=== PATIENT | female | born 1955 | race Caucasian/White ===

== ENCOUNTER → 2019-02-06 09:45 | Outpatient (CLI) | payer MEDICARE, OTHER, SELFPAY ==
--- NOTE | 2019-02-06 09:51 | DI.US.S_ITS ---
PROCEDURE: US PELVIC COMPLETE INDICATIONS: Endometrial cells seen on Pap smear TECHNIQUE: Real-time scanning was performed of the pelvic organs, with image documentation. Additional endovaginal scanning was necessary due to incomplete visualization of the adnexal and endometrial structures by transabdominal scanning. COMPARISON: None. FINDINGS: Transabdominal scanning: Limited scanning through the kidneys shows no hydronephrosis. The left kidney is not well-seen due to overlying bowel gas. No pathologic free abdominal or pelvic fluid. Endovaginal scanning: Uterus: Uterus is normal in size at 7.4 x 3.5 x 5.3 cm. The endometrium measures 2 mm in combined thickness. There is a probable 1.0 x 0.7 x 2.7 cm intramural fibroid in the right anterior uterine wall. Nabothian cysts are noted. Ovaries: Ovaries are not visualized. No adnexal mass. IMPRESSION: 1. Normal ultrasound appearance of endometrium. 2. Probable small uterine fibroid in the right anterior uterine wall. 3. Multiple nabothian cysts. 4. Ovaries are not visualized. No adnexal mass identified. Dictated by: Irais Gómez M.D. on 02/06/2019 at 10:55 Approved by: Irais Gómez M.D. on 02/06/2019 at 11:02
[2019-02-06 11:23] LABS: Alanine Aminotransferase 31 IU/L (9-52); Albumin Globulin Ratio 1.4 (1.0-2.8); Alkaline Phosphatase 79 U/L (38-126); Aspartate Aminotransferase 29 IU/L (14-36); BUN Creatinine Ratio 27.1 (6-22); Bilirubin Total 0.9 mg/dL (0.2-1.3); Blood Urea Nitrogen 19 mg/dL (7-17); Carbon Dioxide 28 mmol/L (22-32); Chloride 102 mmol/L (98-107); Cholesterol 167 mg/dL (140-199); Estimated Glomerular Filt Rate > 60.0 mL/min (>60); Globulin 2.9 g/dL (1.7-4.1); Glucose 85 mg/dL (80-110); HDL Cholesterol 48 mg/dL (40-60); HEMOLYSIS < 15 (0-50); LDL Cholesterol Calculated 111 mg/dL (<100); Potassium 3.9 mmol/L (3.4-5.1); Sodium 137 mmol/L (137-145); Total Protein 6.9 g/dL (6.3-8.2); Triglycerides 38 mg/dL (35-150)
[2019-02-06 11:50] LABS: Vitamin D 25 Hydroxy (D3) 43.2 ng/mL (30.0-100.0)
[2019-02-06 11:57] LABS: Thyroid Stimulating Hormone 0.08 uIU/mL (0.47-4.68)
== END ==
PROVIDERS: Visit Provider Physician Assistant
DX: N88.8 Other specified noninflammatory disorders of cervix uteri (principal); R87.619 Unspecified abnormal cytological findings in specimens from cervix uteri; E03.9 Hypothyroidism, unspecified; Z13.220 Encounter for screening for lipoid disorders; Z13.6 Encounter for screening for cardiovascular disorders; Z13.1 Encounter for screening for diabetes mellitus
CPT/HCPCS: 36415; 76830; 76856; 80053; 80061; 82306; 84443

== ENCOUNTER → 2019-04-15 12:27 | Outpatient (CLI) | payer MEDICARE, OTHER, SELFPAY ==
--- NOTE | 2019-04-15 12:28 | DI.MG.S_ITS ---
BILATERAL DIGITAL SCREENING MAMMOGRAM 3D/2D WITH CAD: 04/15/2019 CLINICAL: Routine screening. Comparison is made to exams dated: 03/08/2017 mammogram, 02/26/2016 mammogram, and 11/21/2014 mammogram - [facility]. The tissue of both breasts is heterogeneously dense. This may lower the sensitivity of mammography. Current study was also evaluated with a Computer Aided Detection (CAD) system. No significant masses, calcifications, or other findings are seen in either breast. There has been no significant interval change. IMPRESSION: NEGATIVE There is no mammographic evidence of malignancy. A 1 year screening mammogram is recommended. This exam was interpreted at Station ID: [id number]. NOTE: For mammograms, a report in lay terms will be sent to the patient. Approximately 15% of breast malignancies will not be visualized mammographically. In the management of a palpable breast mass, a negative mammogram must not discourage biopsy of a clinically suspicious lesion. Electronically Signed By: Steven tejada/sophie:04/15/2019 16:11:43 letter sent: Normal Exam ACR BI-RADS Category 1: Negative 3341F
== END ==
PROVIDERS: PCP Physician Assistant; Visit Provider Physician Assistant
DX: Z12.31 Encounter for screening mammogram for malignant neoplasm of breast (principal); M81.0 Age-related osteoporosis without current pathological fracture; Z78.0 Asymptomatic menopausal state; E07.9 Disorder of thyroid, unspecified
CPT/HCPCS: 77063; 77067; 77080

== ENCOUNTER 2019-05-17 10:41 | Day surgery (SDC) | payer MEDICARE, OTHER, SELFPAY ==
[2019-05-17] VITALS (7 sets, daily range): BP systolic 95–121; BP diastolic 47–71; PULSE 60–99; RESP 12–20; TEMP 36.1–36.7; O2SAT 98–100; BMI 18.9
--- NOTE | 2019-05-17 | PATH_ITS ---
[facility] Accession Number: [id number] . 01 Material submitted: . colon - CECAL POLYP . 02 Diagnosis: Cecum, Polyp: Tubular adenoma. MRV 05/20/2019 1031 Local . 02 Electronically signed: . Brayan Mcdonough MD, PhD, Pathologist NPI- [id number] . 01 Gross description: . CECAL POLYP: Received in formalin are 2 fragment(s) of troy, soft tissue measuring 0.1 x 0.1 x 0.1 cm to 0.2 x 0.2 x 0.2 cm which is entirely submitted and submitted entirely in 1 cassette(s) [place]/17/2019 2311 Local . 02 Pathologist provided ICD-10: D12.0 . 02 CPT . 292859 Performed at: 01 [facility] [address] [id number] MD Solomon Barr MD Phone: [phone] Performed at: 02 [facility] [address] [place], [place] [id number] MD Carmina Savage MD Phone: [phone]
[2019-05-17] MEDS: SODIUM CHLORIDE 0.9% 1,000 ML 200 ML IV ×2 (11:12→13:07)
--- NOTE | 2019-05-17 11:23 | PM.HP.1 ---
History of Present Illness History of Present Illness Date Patient Seen: 05/17/19 Time Patient Seen: 11:23 Chief complaint: [id number] SCREENING COLONOSCOPY Narrative: 64-year-old woman presents for screening colonoscopy Last screening colonoscopy 11 years ago No family or personal history of colorectal cancers or polyps Tolerated the prep well Patient History Family & Social History Social History: household members spouse Tobacco & Substance use: Smoking Status Never smoker alcohol intake current Meds Home Medications and Allergies Home Medications Medication Instructions Recorded Confirmed Type valacyclovir [Valtrex] 1,000 mg PO BID #20 tab 09/01/16 05/17/19 Rx cholecalciferol (vitamin D3) 1,000 1,000 unit PO DAILY 01/11/18 05/17/19 History unit capsule folic acid 400 mcg tablet 400 mcg PO DAILY 01/11/18 05/17/19 History levothyroxine 50 mcg tablet 50 mcg PO QAM #90 tab 12/27/18 05/17/19 Rx Allergies Allergy/AdvReac Type Severity Reaction Status Date / Time No Known Drug Allergies Allergy Verified 01/23/19 09:03 Review of Systems Constitutional Constitutional: Denies fever(s) Eyes Eyes: Denies bulging eyes ENT Ears, Nose, Mouth, and Throat: No lip swelling Cardiovascular Cardiovascular: Denies generalize swelling Respiratory Respiratory: Denies stridor Gastrointestinal Gastrointestinal: Denies coffee ground emesis Musculoskeletal Musculoskeletal: Denies loss of height Integumentary/Breasts Skin/Breast: Denies wounds Neurologic Neurologic: Denies abnormal speech and Denies confusion Psychiatric Psychiatric: Denies confusion and Denies tactile hallucinations Endocrine Endocrine: Denies deepening of the voice Hematologic/Lymphatic Hematologic/Lymphatic: Denies lymphadenopathy Allergic/Immunologic Allergic/Immunologic: Denies lip swelling Exam Vital Signs (past 8 hours): - 05/17/19 11:04 Temperature 97.3 F L Pulse Rate 89 Respiratory Rate 16 Blood Pressure 121/71 Pulse Oximetry 99 Oxygen Delivery Method Room Air Const General: cooperative and healthy appearing Orientation: alert HENWV Head: normal to inspection Nose: nares normal Mouth: oral mucosae normal and lip normal Eyes Eyelids: eyelids normal Conjunctivae: conjunctivae normal Sclera: sclerae normal Neck Neck: supple and other (No thyromegally) Chest Chest: other (LCTAB , regular respiratory effort) Cardio Rhythm: regular rhythm Heart Sounds: S1 normal, S2 normal, no gallops, no murmurs and no rubs GI Other: Abdomen soft nontender nondistended Skin General: no rashes or lesions noted Neuro General: alert and awake Psych Appearance: grossly normal Affect: normal affect Assessment & Plan Assessment & Plan narrative: 64-year-old woman here for screening colonoscopy Risks and benefits of procedure discussed Risks including bleeding, perforation, , hypoxia, missed lesion all discussed All questions answered Patient ready to proceed
--- NOTE | 2019-05-17 11:24 | PM.OP.ENDO ---
Operative Date/Time/Diagnoses Date of procedure: 05/17/19 Time of procedure: 13:15 Pre-op diagnosis: Colorectal cancer screening Procedure & Clinicians Study performed: Diagnostic colonoscopy-complete Polypectomy of cecal polyp x1 -cold biopsy forcep Same procedure as scheduled: Yes Indications: 64-year-old woman without family history of colon or rectal cancers, no personal history of colon polyps. Last colonoscopy 11 years ago Surgeon: Ramirez Covington Procedure Notes SCOAP/Timeout: complete Procedure in detail: Patient was taken to the endoscopy suite a time-out was completed. She was sedated over the entire course of what ended up being a very lengthy procedure with 14 mg of midazolam and 350 micro g of fentanyl. A digital rectal exam was performed without concerning lesions. 160 cm pediatric colonoscope was advanced to the folds of the rectum and colon towards the cecum, the patient had a markedly long, redundant, tightly curved, floppy colon which proved to be a very difficult colon to scope ultimately with the pediatric scope I was able to reach in the vicinity of the mid transverse colon however due to extensive looping I was not able to advance further. This was despite trialed positions in the right left decubitus position supine and prone. Ultimately the pediatric colonoscope was fully withdrawn and switched out for an adult 160 cm colonoscope. This was also advanced through the folds of the rectum, and colon again there was great difficulty negotiating through a very redundant transverse colon. The hepatic flexure was extremely tight approximately 160 degree turn. A total of 2 individuals were required to place abdominal pressure and thus prevent some of the major loops from forming. Ultimately we were able to negotiate around the hepatic flexure in into the ascending colon. With suctioning around full inch by inch with multiple advancement some withdrawals we were able to reach the cecum. The cecum was definitively identified via a ileocecal valve as well as a prominent appendiceal orifice. Inspecting the mucosal surfaces a single questionable polyp was identified within the cecum this was biopsied with the biopsy forcep. The scope was then slowly withdrawn carefully inspecting the mucosal surfaces. The scope was then retroflexed in the rectum. No additional lesions were identified The patient tolerated the procedure well Prep was adequate Scope withdrawal time: 10 Sedation minutes: 91 Specimen(s): other (Cecal polyp) Complications: none Impression: Cecal polyp x1 Extremely redundant, tortuous, long colon Post-procedure Recommendations: Other recommendation (If true adenomatous polyp follow-up in 5 years, if hyperplastic polyp -10 years) Plan for aftercare: PACU then home Follow up: as needed Disposition: PACU
[2019-05-17] MEDS: fentaNYL 250 MCG/5 ML INJ IV (13:16)
[2019-05-17] MEDS: MIDAZOLAM 5 MG/5 ML VIAL IV (13:17)
== END 2019-05-17 14:35 | disposition home or self-care (01) ==
LOC: ENDO 10:44
PROVIDERS: PCP Physician Assistant; Visit Provider Surgery
PROC: 0DJD8ZZ Inspection of Lower Intestinal Tract, Via Natural or Artificial Opening Endoscopic (ICD-10-PCS; CPT 45378; principal; 2019-05-17 11:45)
DX: Z12.11 Encounter for screening for malignant neoplasm of colon (principal); D12.0 Benign neoplasm of cecum
CPT/HCPCS: 45380; 99152; 99153; J2250; J3010

== ENCOUNTER → 2019-10-03 11:38 | Outpatient (CLI) | payer MEDICARE, OTHER, SELFPAY ==
[2019-10-03 13:18] LABS: Thyroid Stimulating Hormone 0.36 uIU/mL (0.47-4.68)
== END ==
PROVIDERS: PCP Physician Assistant; Referring Provider Physician Assistant; Visit Provider Physician Assistant
DX: E03.9 Hypothyroidism, unspecified (principal)
CPT/HCPCS: 36415; 84443

== ENCOUNTER → 2020-01-10 12:32 | Outpatient (CLI) | payer MEDICARE, OTHER, SELFPAY ==
[2020-01-10 15:14] LABS: Vitamin D 25 Hydroxy (D3) 51.7 ng/mL (30.0-100.0)
== END ==
PROVIDERS: PCP Nurse Practitioner Family; Referring Provider Physician Assistant; Visit Provider Physician Assistant
DX: M81.0 Age-related osteoporosis without current pathological fracture (principal); E03.9 Hypothyroidism, unspecified; R79.89 Other specified abnormal findings of blood chemistry
CPT/HCPCS: 36415; 82306; 84443

== ENCOUNTER → 2020-04-18 09:52 | Outpatient (CLI) | payer MEDICARE, OTHER, SELFPAY ==
--- NOTE | 2020-04-18 09:56 | DI.MG.S_ITS ---
BILATERAL DIGITAL SCREENING MAMMOGRAM 3D/2D WITH CAD: 04/18/2020 CLINICAL: Routine screening. Comparison is made to exams dated: 04/15/2019 mammogram, 03/08/2017 mammogram, and 02/26/2016 mammogram - [facility]. The tissue of both breasts is heterogeneously dense. This may lower the sensitivity of mammography. Current study was also evaluated with a Computer Aided Detection (CAD) system. There are benign calcifications in both breasts. There also are benign post operative findings in the left breast. No significant masses, calcifications, or other findings are seen in either breast. There has been no significant interval change. IMPRESSION: BENIGN There is no mammographic evidence of malignancy. A 1 year screening mammogram is recommended. This exam was interpreted at Station ID: [id number]. NOTE: For mammograms, a report in lay terms will be sent to the patient. Approximately 15% of breast malignancies will not be visualized mammographically. In the management of a palpable breast mass, a negative mammogram must not discourage biopsy of a clinically suspicious lesion. Electronically Signed By: Steven tejada/sophie:04/20/2020 07:33:00 letter sent: Normal Exam ACR BI-RADS Category 2: Benign Finding(s) 3342F
== END ==
PROVIDERS: PCP Nurse Practitioner Family; Referring Provider Nurse Practitioner Family; Visit Provider Nurse Practitioner Family
DX: Z12.31 Encounter for screening mammogram for malignant neoplasm of breast (principal)
CPT/HCPCS: 77063; 77067

== ENCOUNTER → 2020-04-22 14:35 | Outpatient (CLI) | payer MEDICARE, OTHER, SELFPAY ==
[2020-04-22 15:17] LABS: Hematocrit 38.1 % (36-46); Hemoglobin 12.5 g/dL (12.0-16.0); Mean Corpuscular HGB Conc 32.9 % (30-36); Mean Corpuscular Hemoglobin 30.7 PG (26-34); Mean Corpuscular Volume 93.2 fL (80-100); Platelet Count 227 X10^3/uL (150-400); Red Blood Cell Count 4.09 X10^6/uL (4.0-5.2); Red Cell Distribution Width 13.5 % (11.6-14.8); White Blood Cell Count 3.6 X10^3/uL (4.5-11.0)
[2020-04-22 15:54] LABS: Alanine Aminotransferase 28 IU/L (<35); Albumin 4.2 g/dL (3.5-5.0); Albumin Globulin Ratio 1.6 (1.0-2.8); Alkaline Phosphatase 90 U/L (38-126); Aspartate Aminotransferase 27 IU/L (14-36); BUN Creatinine Ratio 22.2 (6-22); Blood Urea Nitrogen 16 mg/dL (7-17); Calcium 10.1 mg/dL (8.4-10.2); Carbon Dioxide 26 mmol/L (22-32); Chloride 105 mmol/L (98-107); Estimated Glomerular Filt Rate > 60.0 mL/min (>60); Globulin 2.7 g/dL (1.7-4.1); Glucose 87 mg/dL (80-110); HEMOLYSIS < 15 (0-50); Potassium 4.4 mmol/L (3.4-5.1); Sodium 138 mmol/L (137-145); Total Protein 6.9 g/dL (6.3-8.2)
[2020-04-22 16:09] LABS: Free T4, Direct Thyroxine 1.41 ng/dL (0.78-2.19); Vitamin D 25 Hydroxy (D3) 63.1 ng/mL (30.0-100.0)
[2020-04-22 16:23] LABS: Thyroid Stimulating Hormone 0.345 uIU/mL (0.47-4.68)
== END ==
PROVIDERS: PCP Nurse Practitioner Family; Referring Provider Nurse Practitioner Family; Visit Provider Nurse Practitioner Family
DX: E03.9 Hypothyroidism, unspecified (principal); M81.0 Age-related osteoporosis without current pathological fracture
CPT/HCPCS: 36415; 80053; 82306; 84439; 84443; 85027

== ENCOUNTER → 2020-06-02 14:02 | Outpatient (CLI) | payer MEDICARE, OTHER, SELFPAY ==
[2020-06-02 14:42] LABS: Add Manual Diff / Slide Review NO; Basophils Absolute Auto 0 /uL (0-100); Basophils Percent Auto 0.2 % (0-2); Eosinophils Absolute Auto 100 /uL (0-450); Eosinophils Percent Auto 1.2 % (2-4); Hematocrit 37.2 % (36-46); Hemoglobin 12.4 g/dL (12.0-16.0); Lymphocytes Absolute Auto 1500 /uL (1100-4500); Lymphocytes Percent Auto 34.6 % (25-40); Mean Corpuscular HGB Conc 33.4 % (30-36); Mean Corpuscular Volume 92.9 fL (80-100); Monocytes Absolute Auto 300 /uL (0-900); Monocytes Percent Auto 7.1 % (3-14); Neutrophils Absolute Auto 2400 /uL (1500-7000); Neutrophils Percent Auto 56.9 % (50-75); Platelet Count 233 X10^3/uL (150-400); Red Blood Cell Count 4.01 X10^6/uL (4.0-5.2); Red Cell Distribution Width 14.1 % (11.6-14.8); White Blood Cell Count 4.3 X10^3/uL (4.5-11.0)
[2020-06-02 15:40] LABS: Thyroid Stimulating Hormone 0.555 uIU/mL (0.47-4.68)
== END ==
PROVIDERS: PCP Nurse Practitioner Family; Referring Provider Nurse Practitioner Family; Visit Provider Nurse Practitioner Family
DX: D72.819 Decreased white blood cell count, unspecified (principal); E03.9 Hypothyroidism, unspecified
CPT/HCPCS: 36415; 84443; 85025

== ENCOUNTER → 2020-09-28 11:17 | Outpatient (CLI) | payer MEDICARE, OTHER, SELFPAY ==
[2020-09-28 11:51] LABS: Alanine Aminotransferase 27 IU/L (<35); Albumin Globulin Ratio 1.4 (1.0-2.8); Alkaline Phosphatase 89 U/L (38-126); Aspartate Aminotransferase 25 IU/L (14-36); Bilirubin Total 0.6 mg/dL (0.2-1.3); Blood Urea Nitrogen 18 mg/dL (7-17); Carbon Dioxide 31 mmol/L (22-32); Chloride 103 mmol/L (98-107); Cholesterol 186 mg/dL (140-199); Estimated Glomerular Filt Rate > 60.0 mL/min (>60); Globulin 2.9 g/dL (1.7-4.1); Glucose 96 mg/dL (80-110); HDL Cholesterol 51 mg/dL (40-60); HEMOLYSIS < 15 (0-50); LDL Cholesterol Calculated 120 mg/dL (<100); Potassium 4.4 mmol/L (3.4-5.1); Sodium 137 mmol/L (137-145); Total Protein 6.9 g/dL (6.3-8.2); Triglycerides 77 mg/dL (35-150)
[2020-09-28 12:39] LABS: TSH w/ Reflex to FT4 0.61 uIU/mL (0.47-4.68)
== END ==
PROVIDERS: PCP Nurse Practitioner Family; Referring Provider Nurse Practitioner Family; Visit Provider Nurse Practitioner Family
DX: E03.9 Hypothyroidism, unspecified (principal)
CPT/HCPCS: 36415; 80053; 80061; 84443

== ENCOUNTER → 2020-11-06 10:39 | Outpatient (CLI) | payer MEDICARE, OTHER, SELFPAY ==
[2020-11-06] MEDS: COVID-19 VACC, Ad26(JANSSEN)/PF 0.5 ML IM (10:45)
== END ==
PROVIDERS: PCP Nurse Practitioner Family; Visit Provider Internal Medicine
DX: Z23 Encounter for immunization (principal)
CPT/HCPCS: 0031A; 91303

== ENCOUNTER → 2021-06-08 10:40 | Outpatient (CLI) | payer MEDICARE, OTHER, SELFPAY ==
[2021-06-08 11:07] LABS: Hematocrit 38.3 % (36-46); Hemoglobin 12.5 g/dL (12.0-16.0); Mean Corpuscular HGB Conc 32.7 % (30-36); Mean Corpuscular Hemoglobin 30.8 PG (26-34); Mean Corpuscular Volume 94.3 fL (80-100); Platelet Count 250 X10^3/uL (150-400); Red Blood Cell Count 4.06 X10^6/uL (4.0-5.2); White Blood Cell Count 3.8 X10^3/uL (4.5-11.0)
[2021-06-08 11:28] LABS: Alanine Aminotransferase 39 IU/L (<35); Albumin 3.8 g/dL (3.5-5.0); Albumin Globulin Ratio 1.3 (1.0-2.8); Alkaline Phosphatase 74 U/L (38-126); Aspartate Aminotransferase 32 IU/L (14-36); BUN Creatinine Ratio 20.3 (6-22); Bilirubin Total 0.7 mg/dL (0.2-1.3); Blood Urea Nitrogen 14 mg/dL (7-17); Calcium 9.6 mg/dL (8.4-10.2); Carbon Dioxide 29 mmol/L (22-32); Chloride 105 mmol/L (98-107); Estimated Glomerular Filt Rate > 60.0 mL/min (>60); Globulin 2.9 g/dL (1.7-4.1); Glucose 85 mg/dL (80-110); HEMOLYSIS < 15 (0-50); Potassium 4.1 mmol/L (3.4-5.1); Sodium 139 mmol/L (137-145); Total Protein 6.7 g/dL (6.3-8.2)
[2021-06-08 11:45] LABS: Free T4, Direct Thyroxine 1.09 ng/dL (0.78-2.19); Vitamin D 25 Hydroxy (D3) 73.3 ng/mL (30.0-100.0)
[2021-06-08 11:59] LABS: Thyroid Stimulating Hormone 0.538 uIU/mL (0.47-4.68)
== END ==
PROVIDERS: PCP Nurse Practitioner Family; Referring Provider Nurse Practitioner Family; Visit Provider Nurse Practitioner Family
DX: Z00.00 Encounter for general adult medical examination without abnormal findings (principal); D72.819 Decreased white blood cell count, unspecified; E03.9 Hypothyroidism, unspecified; M81.0 Age-related osteoporosis without current pathological fracture
CPT/HCPCS: 36415; 80053; 82306; 84439; 84443; 85027

== ENCOUNTER → 2021-06-29 15:20 | Outpatient (CLI) | payer MEDICARE, OTHER, SELFPAY ==
--- NOTE | 2021-06-29 15:22 | DI.MG.S_ITS ---
BILATERAL DIGITAL SCREENING MAMMOGRAM 3D/2D WITH CAD: 06/29/2021 CLINICAL: Routine screening. Comparison is made to exams dated: 04/18/2020 mammogram, 04/15/2019 mammogram, 04/03/2017 mammogram, and 03/08/2017 mammogram - [facility]. The tissue of both breasts is heterogeneously dense. This may lower the sensitivity of mammography. Current study was also evaluated with a Computer Aided Detection (CAD) system. There are benign calcifications in both breasts. There also are benign post operative findings in the left breast. No significant masses, calcifications, or other findings are seen in either breast. There has been no significant interval change. IMPRESSION: BENIGN There is no mammographic evidence of malignancy. A 1 year screening mammogram is recommended. This exam was interpreted at Station ID: [id number]. NOTE: For mammograms, a report in lay terms will be sent to the patient. Approximately 15% of breast malignancies will not be visualized mammographically. In the management of a palpable breast mass, a negative mammogram must not discourage biopsy of a clinically suspicious lesion. Electronically Signed By: Rodrick ewing/sophie:06/29/2021 16:05:02 letter sent: Normal Exam ACR BI-RADS Category 2: Benign Finding(s) 3342F
== END ==
PROVIDERS: PCP Nurse Practitioner Family; Referring Provider Nurse Practitioner Family; Visit Provider Nurse Practitioner Family
DX: M81.0 Age-related osteoporosis without current pathological fracture (principal); Z12.31 Encounter for screening mammogram for malignant neoplasm of breast; Z78.0 Asymptomatic menopausal state; E03.9 Hypothyroidism, unspecified
CPT/HCPCS: 77063; 77067; 77080

== ENCOUNTER → 2022-09-27 09:07 | Outpatient (CLI) | payer MEDICARE, OTHER, SELFPAY ==
[2022-09-27 09:34] LABS: Add Manual Diff / Slide Review NO; Basophils Absolute Auto 0 /uL (0-100); Basophils Percent Auto 0.3 % (0-2); Eosinophils Absolute Auto 0 /uL (0-450); Eosinophils Percent Auto 0.9 % (2-4); Hematocrit 36.8 % (36-46); Hemoglobin 12.3 g/dL (12.0-16.0); Lymphocytes Absolute Auto 1600 /uL (1100-4500); Lymphocytes Percent Auto 40.1 % (25-40); Mean Corpuscular HGB Conc 33.3 % (30-36); Mean Corpuscular Hemoglobin 30.9 PG (26-34); Mean Corpuscular Volume 92.7 fL (80-100); Monocytes Absolute Auto 300 /uL (0-900); Monocytes Percent Auto 7.9 % (3-14); Neutrophils Absolute Auto 2000 /uL (1500-7000); Neutrophils Percent Auto 50.8 % (50-75); Platelet Count 261 X10^3/uL (150-400); Red Blood Cell Count 3.97 X10^6/uL (4.0-5.2); White Blood Cell Count 3.9 X10^3/uL (4.5-11.0)
[2022-09-27 09:57] LABS: Alanine Aminotransferase 38 IU/L (<35); Albumin 3.6 g/dL (3.5-5.0); Albumin Globulin Ratio 1.3 (1.0-2.8); Alkaline Phosphatase 88 U/L (38-126); Aspartate Aminotransferase 30 IU/L (14-36); BUN Creatinine Ratio 27.3 (6-22); Bilirubin Total 0.7 mg/dL (0.2-1.3); Blood Urea Nitrogen 18 mg/dL (7-17); Calcium 9.2 mg/dL (8.4-10.2); Carbon Dioxide 28 mmol/L (22-32); Chloride 105 mmol/L (98-107); Estimated Glomerular Filt Rate > 60 mL/min (>60); Globulin 2.8 g/dL (1.7-4.1); Glucose 85 mg/dL (80-110); HEMOLYSIS < 15 (0-50); Potassium 4.6 mmol/L (3.4-5.1); Sodium 139 mmol/L (137-145); Total Protein 6.4 g/dL (6.3-8.2)
[2022-09-27 10:15] LABS: Free T3, Triiodothyronine Free 3.92 pg/mL (2.77-5.27); Free T4, Direct Thyroxine 1.27 ng/dL (0.78-2.19)
[2022-09-27 10:28] LABS: Thyroid Stimulating Hormone 0.795 uIU/mL (0.47-4.68)
== END ==
PROVIDERS: PCP Family Medicine; Referring Provider Family Medicine; Visit Provider Family Medicine
DX: D72.819 Decreased white blood cell count, unspecified (principal); E03.9 Hypothyroidism, unspecified; M81.0 Age-related osteoporosis without current pathological fracture
CPT/HCPCS: 36415; 80053; 84439; 84443; 84481; 85025

== ENCOUNTER → 2023-10-10 11:09 | Outpatient (CLI) | payer MEDICARE, OTHER, SELFPAY ==
--- NOTE | 2023-10-10 | DI.MG.S_ITS ---
BILATERAL DIGITAL SCREENING MAMMOGRAM 3D/2D WITH CAD: 10/10/2023 CLINICAL: Routine screening. Comparison is made to exams dated: 06/29/2021 mammogram, 04/18/2020 mammogram, and 04/15/2019 mammogram - [facility]. Both breasts are heterogeneously dense, which may obscure small masses (category c / 51-75% glandular tissue). Current study was also evaluated with a Computer Aided Detection (CAD) system. There are benign calcifications in both breasts. There also are benign post operative findings in the left breast. No significant masses, calcifications, or other findings are seen in either breast. There has been no significant interval change. IMPRESSION: BENIGN There is no mammographic evidence of malignancy. A 1 year screening mammogram is recommended. Based on the Tyrer Cuzick model (a risk assessment model) the patient's lifetime risk is 5.7% and her 10 year risk is 3.6%. According to the ACR, ACS, and NCCN guidelines, an annual breast MRI exam along with mammogram is recommended if the patient's lifetime risk is 20% or greater. This exam was interpreted at Station ID: [id number]. NOTE: For mammograms, a report in lay terms will be sent to the patient. Approximately 15% of breast malignancies will not be visualized mammographically. In the management of a palpable breast mass, a negative mammogram must not discourage biopsy of a clinically suspicious lesion. Electronically Signed By: Janine ruiz/sophie:10/10/2023 13:10:23 letter sent: Normal Exam ACR BI-RADS Category 2: Benign Finding(s) 3342F
--- NOTE | 2023-10-10 11:30 | DI.RAD.S_ITS ---
Bone Density Report Name: ELIAS COYNE Age: 68 Sex: Female Ethnicity: White Date of : 1955 Indication: postmenopausal osteoporosis; monitoring treatment; Referring Provider: [facility]CR[facility] Study: Bone densitometry was performed. Exam Date: October 10, 2023 Accession number: [id number] Bone Density: Region BMD T-score Z-score Classification AP Spine(L1, L2, L3) 0.774 -2.2 -0.1 Osteopenia Femoral Neck (Left) 0.731 -1.1 0.8 Osteopenia Total Hip (Left) 0.754 -1.5 0.0 Osteopenia Femoral Neck (Right) 0.674 -1.6 0.2 Osteopenia Total Hip (Right) 0.693 -2.0 -0.5 Osteopenia Total Hip Mean 0.723 -1.8 -0.3 Osteopenia World Health Organization criteria for BMD impression classify patients as: Normal (T-score at or above -1.0), Osteopenia (T-score between -1.0 and -2.5), or Osteoporosis (T-score at or below -2.5). 10-year Fracture Risk: FRAX not reported because: Treated for osteoporosis Previous Exams: -- Region Exam Age BMD T-score BMD Change BMD Change Date g/cm2 vs Baseline vs Previous -- AP Spine (L1-L3) 10/10/2023 68 0.774 -2.2 0.179 (30.0%)# 0.089 (13.0%)# 06/29/2021 66 0.684 -3.0 0.090 (15.1%)* 0.103 (17.8%)* 04/15/2019 64 0.581 -4.0 -0.014 (-2.3%) -0.014 (-2.3%) 02/26/2016 60 0.595 -3.8 Total Hip(Left) 10/10/2023 68 0.754 -1.5 0.106 (16.3%)# 0.090 (13.6%)# 06/29/2021 66 0.663 -2.3 0.016 (2.4%) 0.067 (11.2%)* 04/15/2019 64 0.596 -2.8 -0.051 (-7.9%)* -0.051 (-7.9%)* 02/26/2016 60 0.648 -2.4 Total Hip(Right) 10/10/2023 68 0.693 -2.0 0.056 (8.8%)# 0.069 (11.1%)# 06/29/2021 66 0.624 -2.6 -0.013 (-2.0%) 0.049 (8.5%)* 04/15/2019 64 0.575 -3.0 -0.062 (-9.7%)* -0.062 (-9.7%)* 02/26/2016 60 0.637 -2.5 -- *Denotes significance at 95% confidence level, LSC for AP Spine = 0.022 g/cm2, LSC for Total Hip = 0.027 g/cm2 Rate of change results reflect vertebral levels common to all scans # Denotes dissimilar scan types or analysis methods Impression: The patient has low bone mass, based on the Total Spine T-score. No significant bone loss was observed. Discussion: PATIENT UNDER TREATMENT WITH NO SIGNIFICANT BMD LOSS SINCE LAST EXAM. In an untreated patient, BMD typically declines with age. A lack of decline or gain is usually a sign that treatment is efficacious and fracture risk is reduced. It is important to ask patients whether they are taking their medications and to encourage continued and appropriate compliance with their osteoporosis therapies to reduce fracture risk. It is also important to review their risk factors and encourage appropriate calcium and vitamin D intakes, exercise, fall prevention and other lifestyle measures. Follow-Up: Consider a repeat BMD and Vertebral Fracture Assessment (VFA) exam in 2 years or sooner if medically necessary, to reassess this patient's status. Reported by: RANI GAINES M.D. on 10/10/2023 11:53:00 AM.
== END ==
LOC: MAMMO 11:10
PROVIDERS: PCP Family Medicine; Referring Provider Family Medicine; Visit Provider Family Medicine
DX: Z12.31 Encounter for screening mammogram for malignant neoplasm of breast (principal); R92.333 Mammographic heterogeneous density, bilateral breasts; M81.0 Age-related osteoporosis without current pathological fracture
CPT/HCPCS: 77063; 77067; 77080

== ENCOUNTER → 2024-12-23 10:38 | Outpatient (CLI) | payer MEDICARE, SELFPAY ==
[2024-12-23 12:32] LABS: Influenza A - CEPHEID Flu A NEGATIVE (NEGATIVE); Influenza B - CEPHEID Flu B NEGATIVE (NEGATIVE); Respiratory Syncytial Virus Negative (Negative)
[2024-12-23 12:33] LABS: COVID-19 CEPHEID 4-PLEX PCR POSITIVE (Negative)
== END ==
PROVIDERS: PCP Family Medicine; Visit Provider Nurse Practitioner Family
DX: J02.9 Acute pharyngitis, unspecified (principal); R05.1 Acute cough
CPT/HCPCS: 0241U; 87070

== ENCOUNTER → 2024-12-23 11:01 | Outpatient (CLI) | payer MEDICARE, SELFPAY ==
--- NOTE | 2024-12-23 11:02 | DI.RAD.S_ITS ---
PROCEDURE: XR CHEST 2V INDICATIONS: Cough TECHNIQUE: 2 views of the chest were acquired. COMPARISON: None. FINDINGS: Surgical changes and devices: None. Lungs and pleura: Lungs are clear. No pleural effusions or pneumothorax. Possible 8 millimeter solid nodule in the right upper lung zone. Mediastinum: Mediastinal contours are normal. Heart size is normal. Bones and chest wall: No suspicious bony abnormalities. Soft tissues appear unremarkable. IMPRESSION: Possible 8 millimeter solid nodule in the right upper lung zone. Consider chest CT without contrast for confirmation. Dictated by: Momo Marcial M.D. on 12/23/2024 at 13:47 Approved by: Momo Marcial M.D. on 12/23/2024 at 13:50
== END ==
PROVIDERS: PCP Family Medicine; Referring Provider Nurse Practitioner Family; Visit Provider Nurse Practitioner Family
DX: J02.9 Acute pharyngitis, unspecified (principal); R05.1 Acute cough
CPT/HCPCS: 0241U; 71046; 87070

== ENCOUNTER → 2024-12-29 10:40 | Outpatient (CLI) | payer MEDICARE, SELFPAY ==
--- NOTE | 2024-12-29 10:42 | DI.CT.S_ITS ---
PROCEDURE: CT CHEST WO CON INDICATIONS: Possible nodule chest TECHNIQUE: Noncontrast 5 mm thick sections acquired from the pulmonary apices to the posterior costophrenic angles. 1 mm lung window, 5 mm thick coronal and sagittal and 7 mm axial MIP reformats were then acquired. For radiation dose reduction, the following was used: automated exposure control, adjustment of mA and/or kV according to patient size. COMPARISON: [facility], CR, XR CHEST 2V, 12/23/2024, 10:59. FINDINGS: Image quality: Diagnostic. Lower Neck: No enlarged lymph nodes. Thyroid: No thyroid nodules which require sonographic follow up, per consensus guidelines. Axillae: No enlarged lymph nodes. Chest Wall: Unremarkable. Bones: Unremarkable. Lungs and Pleura: No pneumothorax or pleural effusions. No consolidation. There are few small pulmonary nodules measuring less than 6 mm without good correlate for the radiographic findings. Example nodules include right upper lobe 3 mm nodule axial image 49, left upper lobe 2 mm nodule axial image 71, right upper lobe subpleural nodule axial image 82, right lower lobe axial image 208 and right lower lobe subpleural axial image 205. Heart: Heart size is normal. No pericardial effusion. Thoracic Vessels: The aorta and pulmonary arteries demonstrate normal size. Mediastinum and Miranda: No enlarged lymph nodes. Esophagus: No wall thickening. No hiatal hernia. Upper Abdomen: Visualized upper abdomen solid organs and bowel loops appear normal. IMPRESSION: No CT correlate for radiographic findings, likely artifactual. A few small pulmonary nodules measuring less than 6 mm. If the patient is high risk for lung cancer consider 1 year follow-up. Dictated by: Julio Kelly M.D. on 12/29/2024 at 10:42 Approved by: Julio Kelly M.D. on 12/29/2024 at 10:59
== END ==
LOC: CT 10:41
PROVIDERS: PCP Family Medicine; Referring Provider Nurse Practitioner Family; Visit Provider Nurse Practitioner Family
DX: R05.9 Cough, unspecified (principal); R91.8 Other nonspecific abnormal finding of lung field
CPT/HCPCS: 71250